=== PATIENT | female | born 1975 | race Asian ===

== ENCOUNTER 2017-07-10 06:05 | Outpatient (CLI) | payer SELFPAY | END 2017-07-10 06:06 | disposition short-term general hospital (02) | LOC: EMS 06:05 | PROVIDERS: ATTEND Surgery | DX: S99.912A Unspecified injury of left ankle, initial encounter (principal); W01.0XXA Fall on same level from slipping, tripping and stumbling without subsequent striking against object, initial encounter; Y92.008 Other place in unspecified non-institutional (private) residence as the place of occurrence of the external cause ==

== ENCOUNTER 2018-12-05 17:21 | Emergency (ER) | payer OTHER ==
--- NOTE | 2018-12-05 17:30 | ED Physician Documentation ---
PD HPI UPPER EXT INJURY - Stated complaint Stated Complaint: LT FINGER NEEDLE STICK - History of Present Illness Location: Left, Finger Type of injury: Puncture wound (patient accidentally stuck with needle of an insulin syringe after giving a client an injection at work. She had a drop or two of blood come out. She cleaned it right away. Talked with her charge nurse and was told to come to ER for evaluation.) Where injury occurred: Work Timing - onset: Today (about an hour ago) Timing - details: Abrupt onset, Now resolved (not bleeding after first minute or so) Worsened by: Palpating (slightly tender) Associated symptoms: No: Weakness, Numbness Contributing factors: Work related Recently seen: Not recently seen Review of Systems Neurologic: denies: Focal weakness, Numbness PD PAST MEDICAL HISTORY - Past Medical History Cardiovascular: None Respiratory: None Neuro: None Endocrine/Autoimmune: None Other Past Medical History: Patient without any history of blood borne disease. She has had prior immunization series of 3 for Hep B virus. - Present Medications Home Medications: Ambulatory Orders Medication Instructions Recorded Confirmed Calcium Carbonate [Calcium] 600 mg PO BID 12/05/18 12/05/18 metFORMIN [Glucophage] 1,000 mg PO BIDWM 12/05/18 12/05/18 - Allergies Allergies/Adverse Reactions: Allergies Allergy/AdvReac Type Severity Reaction Status Date / Time Penicillins Allergy Anaphylaxis Verified 12/05/18 17:52 - Living Situation Living Arrangement: reports: At home PD ED PE NORMAL - Vitals Vital signs reviewed: Yes - General General: Alert and oriented X 3, No acute distress, Well developed/nourished - Derm Derm: Normal color, Warm and dry - Extremities Extremities: Other (left index finger radial side distal phalanx with small area of tenderness and minimally visible puncture wound. No swelling nor redness. No bleeding. ) - Neuro Neuro: No motor deficit, No sensory deficit Results - Vitals Vitals: Vital Signs - 24 hr 12/05/18 12/05/18 17:44 17:52 Temperature 36.9 C Heart Rate 85 81 Respiratory 18 15 Rate Blood Pressure 116/64 116/64 O2 Saturation 98 99 Oxygen O2 Source Room air - Labs Labs: Laboratory Tests 12/05/18 17:56 Sodium 137 Potassium 3.7 Chloride 100 L Carbon Dioxide 24 Anion Gap 13.0 BUN 10 Creatinine 0.6 Estimated GFR (MDRD) 110 Glucose 149 H Calcium 9.7 Total Bilirubin 0.7 AST 22 ALT 26 Alkaline Phosphatase 52 Total Protein 8.0 Albumin 4.4 Globulin 3.6 Albumin/Globulin Ratio 1.2 PD MEDICAL DECISION MAKING - ED course Complexity details: considered differential (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 ER nurse talked with [facility] nursing supervisor dairy sanitation currently on and was told the facility has a protocol for the source/client to get tested for blood borne diseases when needlestick exposure like this. But seems low risk history, and the needlestick itself is low risk with small bore injection needle. ), d/w patient Departure - Departure Disposition: Home, Self Care Clinical Impression: Needle stick injury of finger Qualifiers: Encounter type: initial encounter Qualified Code(s): S61.239A - Puncture wound without foreign body of unspecified finger without damage to nail, initial encounter Condition: Stable Record reviewed to determine appropriate education?: Yes Instructions: ED Body Fluid Exp HC Worker Follow-Up: Bulmaro Mendoza MD [Primary Care Provider] - Comments: This would seem a very low risk exposure with the size of the needle and degree of injury. He also seems unlikely that the client has underlying blood-borne infections. As such I would not advocate any antiviral medication. Regular wound care for the site with cleaning soap and water and ointment. The nurse at [facility] said there is a mechanism for them to follow-up on testing the source-client. Follow-up with your supervisor dairy sanitation at [facility]. Discharge Date/Time: 12/05/18 18:22
[2018-12-05 17:51] VITALS: BP 116/64
[2018-12-05 18:12] LABS: ALBUMIN 4.4 g/dL (3.2-5.5); ALBUMIN/GLOBULIN RATIO 1.2 (1.0-2.2); BILIRUBIN,TOTAL 0.7 mg/dL (0.2-1.0); CALCIUM 9.7 mg/dL (8.5-10.3); CREATININE 0.6 mg/dL (0.4-1.0)
[2018-12-06 13:22] LABS: HEPATITIS C ANTIBODY NON-REACTIVE (NON-REACTIVE)
[2018-12-06 14:01] LABS: HIV AG/AB 4TH GEN NON-REACTIVE (NON-REACTIVE)
== END 2018-12-05 18:22 | disposition home or self-care (01) ==
LOC: ED 17:21
DX: S61.231A Puncture wound without foreign body of left index finger without damage to nail, initial encounter (principal); Z77.21 Contact with and (suspected) exposure to potentially hazardous body fluids; W46.1XXA Contact with contaminated hypodermic needle, initial encounter; Y93.F9 Activity, other caregiving; Y92.89 Other specified places as the place of occurrence of the external cause; Y99.0 Civilian activity done for income or pay
CPT/HCPCS: 36415; 80053; 86317; 86803; 87389; 99282; 99283

== ENCOUNTER 2021-08-26 11:02 | Day surgery (SDC) | payer OTHER ==
[~2021-08-26 11:02] MED LIST: ACETAMINOPHEN 500 MG TABLET PO ONE; CELECOXIB 100 MG CAPSULE PO ONE
--- NOTE | 2021-08-26 11:37 | ANESTHESIA ---
Pre-Anesthesia VS, & Labs - Diagnosis R trigger finger - Procedure R trigger finger release Vital Signs: Temp Pulse Resp BP Pulse Ox 36.8 C 90 16 129/71 99 08/26/21 11:25 08/26/21 11:25 08/26/21 11:25 08/26/21 11:25 08/26/21 11:25 Height: 5 ft 2 in Weight (kg): 54 kg Body Mass Index: 21.7 BMI Classification: Healthy weight - NPO >8 hours - Is Patient ?: No Home Medications and Allergies Calcium Carbonate [Calcium] 600 mg PO BID 12/05/18 metFORMIN [Glucophage] 1,000 mg PO BIDWM 12/05/18 Allergies/Adverse Reactions: Allergies Allergy/AdvReac Type Severity Reaction Status Date / Time Penicillins Allergy Anaphylaxis Verified 08/25/21 13:59 Anes History & Medical History - Anesthetic History Anesthesia Complications: reports: No previous complications Family history of Anesthesia Complications: Denies Family history of Malignant Hyperthermia: Denies - Medical History Cardiovascular: reports: None Pulmonary: reports: None Gastrointestinal: reports: None Urinary: reports: None Neuro: reports: None Musculoskeletal: reports: None Endocrine/Autoimmune: reports: None Blood Disorders: reports: None Skin: reports: None Smoking Status: Never smoker - Surgical History Gynecologic: reports: section Exam General: Alert, Oriented x3 Dental: WNL, Other (braces) Mouth Openin Fingerbreadth Neck Mobility: Normal Mallampati classification: II Respiratory: Lungs clear Cardiovascular: Regular rate Plan Anesthesia Type: Total IV, Other (surgeon to localize in room) Consent for Procedure(s) Verified and Reviewed: Yes Code Status: Attempt Resuscitation ASA classification: 2-Mild systemic disease Is this case an emergency?: No
[2021-08-26] MEDS ORDERED: LACTATED RINGERS 1,000 ML IV ONE ×2 (11:49→13:54)
[2021-08-26 12:21] LABS: HCG UR QUAL NEGATIVE
[2021-08-26] MEDS ORDERED: BUPIVACAINE 0.5% PF 10 ML VIAL IM ONE (12:35)
[2021-08-26] MEDS ORDERED: LIDOCAINE 1% 50 ML MDV SUBQ ONE (12:36)
[2021-08-26] MEDS ORDERED: MIDAZOLAM 2 MG/2 ML VIAL ONE (13:11)
[2021-08-26] MEDS ORDERED: PROPOFOL 500 MG/50 ML 500 MG/50 ML VIAL ONE (13:11)
[2021-08-26] MEDS ORDERED: PROPOFOL 200 MG/20 ML VIAL IVP ONE (13:17)
[2021-08-26] MEDS ORDERED: fentaNYL 100 MCG/2 ML VIAL ONE (13:19)
[2021-08-26] MEDS ORDERED: KETOROLAC 15 MG/ML VIAL IVP STA (13:53)
[2021-08-26] MEDS ORDERED: oxyCODONE 5 MG TABLET PO PRN (13:53)
[2021-08-26 14:38] VITALS: BP 114/78
--- NOTE | 2021-08-26 14:57 | OPERATIVE REPORT ---
Operative Report - General Procedure Date: 08/26/21 Planned Procedure: Flexor tendon sheath release right thumb Pre-Op Diagnosis: Trigger thumb, right thumb Procedure Performed: Flexor tendon sheath release base of right thumb Post Op Diagnosis: Same as preoperative diagnosis - Procedure Note Primary Surgeon: Gregorio Rodrigez MD Secondary Surgeon: Nazario GRIGGS Anesthesia Provider: Dyana Sam CRNA Anesthesia Technique: Local, Moderate sedation Estimated Blood Loss (mL): 2 Indications: This 45-year-old woman has had triggering of the right thumb when trying to extend the interphalangeal joint off and on for several months. She is tried at least 2 cortisone injections with short-term improvement but continues to have painful triggering of right thumb, confirmed by tenderness and triggering on exam. She has had a previous flexor tendon sheath release to her left thumb in the past with favorable outcome Findings: The flexor tendon sheath was intact to base of right thumb. The flexor tendon appeared normal. Complications: None - Other Other Information/Narrative: The patient was brought to the operating room and placed in a supine position with the right arm on an arm extension table. The right upper extremity was prepped and draped in a sterile manner in the usual fashion. A pneumatic tourniquet was applied to the proximal right arm with skin protection. A timeout procedure was performed by the entire operating room team and all were in agreement. A lead hand was used to position the right thumb and some abduction and oppo sition. The pneumatic tourniquet was elevated to 200 mmHg. A transverse incision was made through the skin over the base of the right thumb in the flexor crease. After the skin had been incised, the subcutaneous tissue was opened using a spreading technique. The entire surgical procedure was done using Zeiss 3.2 loop magnification. The flexor tendon sheath was identified. Right angle retractors were inserted to protect the neurovascular bundles on each side of the flexor tendon. The tendon was then inspected, the sheath was identified and split over its midline using a pair of scissors to decompress the flexor tendon. She can move the finger without sign of triggering. The tourniquet was deflated. The skin was closed with interrupted 4-0 nylon. A dry sterile dressing was applied. A physician visitor service assistant was utilized to protect the neurovascular bundles with retraction, closure and dressing.
--- NOTE | 2021-08-26 15:10 | ANESTHESIA POST OP EVALUATION ---
Anesthesia Post Eval - Post Anesthesia Eval Vitals: Last Vital Signs Temp 36.9 C 08/26/21 14:21 Pulse 78 08/26/21 14:37 Resp 14 08/26/21 14:37 BP 114/78 08/26/21 14:37 Pulse Ox 100 08/26/21 14:37 CV Function Including HR & BP: Stable Pain Control: Satisfactory Nausea & Vomiting: Negative Mental Status: Baseline Respiratory Status: Airway Patent Hydration Status: Satisfactory Anesthesia Complications: None
== END 2021-08-26 11:03 | disposition home or self-care (01) ==
LOC: SDS 11:02
PROVIDERS: ATTEND Orthopaedic Surgery
DX: M65.311 Trigger thumb, right thumb (principal)
CPT/HCPCS: 26055; 81025; A9270; J7120